=== PATIENT | male | born 1965 | race African-American/Black ===

== ENCOUNTER 2017-07-18 14:36 | Emergency (ER) | payer MEDICAID, MEDICARE ==
[~2017-07-18] VITALS: Ht 167.6 cm; Wt 90.0 kg
[2017-07-18] MEDS ORDERED: ALBUTEROL (0.083%) 2.5MG/3ML NEB HHN STA ×2 (15:24→16:25)
[2017-07-18] MEDS ORDERED: PREDNISONE 20MG TABLET PO STA (15:24)
[2017-07-18] MEDS ORDERED: IPRATROPIUM BROMIDE (0.02%) 0.5MG/2.5ML NEB HHN STA ×2 (15:24→16:25)
[2017-07-18] MEDS ORDERED: METHYLPREDNISOLONE SOD SUCC 125 MG/2 ML VIAL IV ONE (15:30)
[2017-07-18 17:15] LABS: HEMATOCRIT. 42.7 % (42.0-52.0); HEMOGLOBIN. 14.1 g/dL (14.0-18.0); MEAN CORPUSCULAR HEMOGLOBIN 28.3 pg (28.0-32.0); MEAN CORPUSCULAR VOLUME 85.7 fL (80.0-94.0); MEAN PLATELET VOLUME 7.8 fl (7.4-10.4); PLATELET 288 x1000/uL (130-400); RED BLOOD CELL COUNT 4.98 mill/uL (4.7-6.1); RED CELL DISTRIBUTION WIDTH 15.3 % (11.6-14.6)
[2017-07-18 17:23] LABS: CHLORIDE 104 mEq/L (98-107)
[2017-07-18 17:51] LABS: PLATELET ESTIMATE NORMAL
[2017-07-18 18:24] VITALS: BP 137/68
== END 2017-07-18 18:25 | disposition home or self-care (01) ==
LOC: ER 14:50
DX: J45.901 Unspecified asthma with (acute) exacerbation (principal); F17.200 Nicotine dependence, unspecified, uncomplicated
CPT/HCPCS: 36415; 71045; 80053; 85025; 93005; 94640; 96374; 99284; J2930; J7611